=== PATIENT | male | born 1940 | race Caucasian/White ===

== ENCOUNTER 2018-02-02 13:42 | Inpatient (IN) | payer MEDICARE, OTHER ==
[2018-02-02] VITALS (11 sets, daily range): BP systolic 89–101; BP diastolic 59–82
[~2018-02-02] VITALS: Ht 177.8 cm; Wt 51.7 kg
[~2018-02-02 13:42] MED LIST: ALBUTEROL S2.5 MG/.5 IN; ALENDRONATE70 MG PO; ASPIRIN LOW DOS81 M2 PO; ATENOLOL25 MG PO; B-121000 MC1 PO; B12 LIQUID PO; CALCIUM + D600 MG OR; CALCIUM600 M3 PO; CIPRO XR500 MG PO; COUMADIN3 MG PO; EQ OMEPRAZOLE20 MG PO; ETANERCEPT IM; FOLIC ACID1 MG PO; FORADIL IN; GUAIFENESI100 MG/5 M PO; HYDROCODONE/ACE1 TA1 PO; HYTRIN2 MG PO; HYTRIN5 MG OR; LANOXIN0.125 MG PO; LISINOPRIL20 MG PO; MORPHINE SUL30 M3 PO; OMEPRAZOLE20 MG PO; PERCOCET1 TA4 PO; PRAVASTATIN SOD20 MG PO; PRAVASTATIN20 MG PO; PRAVASTATIN40 MG PO; TERAZOSIN5 MG PO; VERAPAMIL240 M1 PO; VITAMIN D50000 UN1 OR; [UNRECOGNIZED DRUG - REMARK]
[2018-02-02 14:18] LABS: IMMATURE GRANULOCYTES 0.5 % (0.0-5.0); MEAN CORPUSCULAR HGB 27.7 pG CALC (26.0-32.0); MEAN CORPUSCULAR HGB CONC 30.5 g/L CALC (32.0-36.0); NEUT# 2.46 thou/uL (1.82-7.42); RED BLOOD COUNT 4.33 mill/uL (4.70-6.10); RED CELL DISTRI WIDTH 16.8 % (11.5-15.5)
[2018-02-02 14:22] LABS: HEMATOCRIT 39.4 % (39.0-50.0)
[2018-02-02 14:37] LABS: ALBUMIN 3.5 g/dL (3.2-5.0); BILIRUBIN, TOTAL 0.9 mg/dL (0.0-1.4); CREATININE 1.5 mg/dL (0.7-1.3); POTASSIUM 3.9 mmol/l (3.5-5.1)
[2018-02-02 14:38] LABS: TOTAL PROTEIN 8.2 g/dL (6.3-8.2)
[2018-02-02] MEDS ORDERED: B121000 MCG (15:01)
[2018-02-02] MEDS ORDERED: APAP325 MG PO (18:04)
[2018-02-02] MEDS ORDERED: ALFUZOSIN HCL E10 MG PO (18:05)
[2018-02-02] MEDS ORDERED: DOXEPIN HCL10 MG PO (18:05)
[2018-02-02] MEDS ORDERED: LEVOTHYROXIN100 MC1 PO (18:06)
[2018-02-02] MEDS ORDERED: ALL DAY10 MG PO (18:07)
[2018-02-02] MEDS ORDERED: NAPROXEN EC500 MG PO (18:08)
[2018-02-03] VITALS (13 sets, daily range): BP systolic 86–116; BP diastolic 58–79
[2018-02-03 05:42] LABS: HEMATOCRIT 36.3 % (39.0-50.0); HEMOGLOBIN 11.5 g/dl (14.0-18.0); IMMATURE GRANULOCYTES 0.9 % (0.0-5.0); MEAN CELL VOLUME 86.6 fL CALC (80.0-100.0); MEAN CORPUSCULAR HGB 27.4 pG CALC (26.0-32.0); MEAN CORPUSCULAR HGB CONC 31.7 g/L CALC (32.0-36.0); NEUT# 2.14 thou/uL (1.82-7.42); RED BLOOD COUNT 4.19 mill/uL (4.70-6.10); RED CELL DISTRI WIDTH 16.4 % (11.5-15.5)
[2018-02-03 05:43] LABS: ALBUMIN 2.9 g/dL (3.2-5.0); ALKALINE PHOSPHATASE 69 u/l (38-126); ANION GAP 15 (6-22 (CALC)); BILIRUBIN, TOTAL 0.7 mg/dL (0.0-1.4); BUN 40 mg/dL (8-23); BUN/CREATININE RATIO 36 (12-20 (CALC)); CARBON DIOXIDE 23 mmol/l (22-30); CHLORIDE 111 mmol/l (95-108); CREATININE 1.1 mg/dL (0.7-1.3); GFR > 60 ML/MIN (>=60 (CALC)); GFR FOR AFR.AMER. > 60 ML/MIN (>=60 (CALC)); MAGNESIUM 2.5 mg/dL (1.6-2.3); SGOT/AST 37 u/l (19-48); SODIUM 144 mmol/l (137-146)
[2018-02-04] VITALS (14 sets, daily range): BP systolic 79–108; BP diastolic 52–67
[2018-02-04 06:13] LABS: ALBUMIN 2.6 g/dL (3.2-5.0); ALKALINE PHOSPHATASE 63 u/l (38-126); ANION GAP 15 (6-22 (CALC)); BILIRUBIN, TOTAL 0.6 mg/dL (0.0-1.4); BUN 28 mg/dL (8-23); BUN/CREATININE RATIO 35 (12-20 (CALC)); CARBON DIOXIDE 21 mmol/l (22-30); CHLORIDE 106 mmol/l (95-108); CREATININE 0.8 mg/dL (0.7-1.3); GFR > 60 ML/MIN (>=60 (CALC)); GFR FOR AFR.AMER. > 60 ML/MIN (>=60 (CALC)); MAGNESIUM 2.2 mg/dL (1.6-2.3); POTASSIUM 3.7 mmol/l (3.5-5.1); SGOT/AST 39 u/l (19-48); SODIUM 139 mmol/l (137-146); TOTAL PROTEIN 6.4 g/dL (6.3-8.2)
[2018-02-04 07:31] LABS: HEMATOCRIT 34.7 % (39.0-50.0); IMMATURE GRANULOCYTES 1.2 % (0.0-5.0); MEAN CELL VOLUME 85.7 fL CALC (80.0-100.0); MEAN CORPUSCULAR HGB 27.2 pG CALC (26.0-32.0); MEAN CORPUSCULAR HGB CONC 31.7 g/L CALC (32.0-36.0); PLATELET COUNT 131 thou/uL (130-400); RED BLOOD COUNT 4.05 mill/uL (4.70-6.10); RED CELL DISTRI WIDTH 16.1 % (11.5-15.5)
[2018-02-04 08:02] LABS: MANUAL DIFFERENTIAL YES
[2018-02-04 08:03] LABS: BAND 15 % (0-8)
[2018-02-05] VITALS (9 sets, daily range): BP systolic 90–150; BP diastolic 51–104
[2018-02-06] VITALS (7 sets, daily range): BP systolic 97–136; BP diastolic 52–80
[2018-02-06 05:16] LABS: HEMATOCRIT 32.1 % (39.0-50.0); HEMOGLOBIN 10.1 g/dl (14.0-18.0); IMMATURE GRANULOCYTES 0.4 % (0.0-5.0); MEAN CELL VOLUME 87.5 fL CALC (80.0-100.0); MEAN CORPUSCULAR HGB 27.5 pG CALC (26.0-32.0); MEAN CORPUSCULAR HGB CONC 31.5 g/L CALC (32.0-36.0); NEUT# 3.74 thou/uL (1.82-7.42); RED BLOOD COUNT 3.67 mill/uL (4.70-6.10); RED CELL DISTRI WIDTH 16.2 % (11.5-15.5)
[2018-02-06 05:27] LABS: ALBUMIN 2.4 g/dL (3.2-5.0); ALKALINE PHOSPHATASE 67 u/l (38-126); ANION GAP 11 (6-22 (CALC)); BILIRUBIN, TOTAL 0.4 mg/dL (0.0-1.4); BUN 18 mg/dL (8-23); BUN/CREATININE RATIO 25 (12-20 (CALC)); CARBON DIOXIDE 26 mmol/l (22-30); CHLORIDE 108 mmol/l (95-108); CREATININE 0.7 mg/dL (0.7-1.3); GFR > 60 ML/MIN (>=60 (CALC)); GFR FOR AFR.AMER. > 60 ML/MIN (>=60 (CALC)); MAGNESIUM 2.2 mg/dL (1.6-2.3); POTASSIUM 3.8 mmol/l (3.5-5.1); SGOT/AST 32 u/l (19-48); SODIUM 141 mmol/l (137-146); TOTAL PROTEIN 5.9 g/dL (6.3-8.2)
[2018-02-07 04:00] VITALS: BP 125/76
[2018-02-07 09:03] VITALS: BP 132/80
[2018-02-07] MEDS ORDERED: AUGMENTIN875TAB PO (11:58)
[2018-02-07] MEDS ORDERED: OXY1 (12:06)
== END 2018-02-07 13:36 | disposition home health service (06) | DRG 190 ==
LOC: ED 13:42 → ED-I 14:50 → ED 15:19 → MS2 15:20 → ICU 15:20 → MS2 02-05 09:51
PROVIDERS: Emergency Medicine; ADMIT Internal Medicine Nephrology; ATTEND Internal Medicine Nephrology
PROC: 3E0234Z Introduction of Serum, Toxoid and Vaccine into Muscle, Percutaneous Approach (ICD-10-PCS; principal; 2018-02-04)
PROC: 3E02340 Introduction of Influenza Vaccine into Muscle, Percutaneous Approach (ICD-10-PCS; 2018-02-04)
DX: J44.1 Chronic obstructive pulmonary disease with (acute) exacerbation (principal); J18.9 Pneumonia, unspecified organism; N17.9 Acute kidney failure, unspecified; C78.00 Secondary malignant neoplasm of unspecified lung; R64 Cachexia; Z68.1 Body mass index [BMI] 19.9 or less, adult; J44.0 Chronic obstructive pulmonary disease with (acute) lower respiratory infection; F17.210 Nicotine dependence, cigarettes, uncomplicated; I10 Essential (primary) hypertension; I25.10 Atherosclerotic heart disease of native coronary artery without angina pectoris; D50.8 Other iron deficiency anemias; D51.9 Vitamin B12 deficiency anemia, unspecified; E55.9 Vitamin D deficiency, unspecified; K21.9 Gastro-esophageal reflux disease without esophagitis; N40.0 Benign prostatic hyperplasia without lower urinary tract symptoms; I95.9 Hypotension, unspecified; E78.5 Hyperlipidemia, unspecified; I71.2 Thoracic aortic aneurysm, without rupture; C80.1 Malignant (primary) neoplasm, unspecified; R00.1 Bradycardia, unspecified; Z23 Encounter for immunization
CPT/HCPCS: J1650; Q9967